=== PATIENT | female | born 1955 | race Caucasian/White ===

== ENCOUNTER 2019-02-22 04:47 | Emergency (ER) | payer MEDICAID ==
[~2019-02-22] VITALS: Ht 154.9 cm; Wt 83.2 kg
[2019-02-22 06:53] VITALS: BP 136/70
== END 2019-02-22 07:04 | disposition home or self-care (01) ==
LOC: ER 04:47
DX: I83.91 Asymptomatic varicose veins of right lower extremity (principal); E11.9 Type 2 diabetes mellitus without complications; Z98.890 Other specified postprocedural states; Z88.3 Allergy status to other anti-infective agents
CPT/HCPCS: 99283; Z7610